=== PATIENT | male | born 1945 | race Caucasian/White ===

== ENCOUNTER 2020-04-04 02:12 | Outpatient (CLI) | payer MEDICARE, OTHER, SELFPAY ==
[2020-04-04 21:22] LABS: SARS-CoV-2 RNA PCR Negative
== END 2020-04-04 02:13 | disposition home or self-care (01) ==
LOC: ANHCOVIDDT 02:13
PROVIDERS: Visit Provider Plastic Surgery
DX: Z01.818 Encounter for other preprocedural examination (principal); Z20.828 Contact with and (suspected) exposure to other viral communicable diseases
CPT/HCPCS: 87635; 93005; C9803; U0003

== ENCOUNTER 2020-04-04 09:28 | Outpatient (CLI) | payer MEDICARE, OTHER, SELFPAY ==
--- NOTE | 2020-04-04 09:35 | ECG_ITS ---
Measurements Intervals [place] Rate: 86 P: 68 IN: 148 QRS: 53 QRSD: 86 T: 37 QT: 324 QTc: 388 Interpretive Statements SINUS RHYTHM BASELINE ARTIFACT- I, II, III, AVR, AVL, AVF NORMAL ECG Electronically Signed On 04-04-2020 11:24:07 OPTICAL MECHANIC APPRENTICE by Zay Valencia D.O.
== END 2020-04-04 09:29 | disposition home or self-care (01) ==
LOC: ANHSURGERY 09:35
PROVIDERS: PCP Emergency Medicine; Visit Provider Plastic Surgery
DX: Z01.818 Encounter for other preprocedural examination (principal); I10 Essential (primary) hypertension
CPT/HCPCS: 93005

== ENCOUNTER 2020-04-07 01:23 | Day surgery (SDC) | payer MEDICARE, OTHER, SELFPAY ==
[2020-03-29 14:06] VITALS: BMI 19.5
--- NOTE | 2020-04-06 13:55 | P.PNAN_ITS ---
Anes - Initial Pre Proc Eval Procedure: Operation Date: 04/07/20 08:30 Proposed Procedures p Wide Excision of Melanoma Left Medial Extensor Forearm, With [place] Lymph Node Biopsy - Ramy Hearn MD Date/Time: 04/06/20 13:55 Surgeon: Ramy Hearn MD Pre Op Diagnosis: Melanoma Left Medial Extensor Forearm Patient Data Age: 74 Gender: M Height: 1.7 m Weight: 56.8 kg Allergies Allergy/AdvReac Type Severity Reaction Status Date / Time Penicillins Allergy Unknown SWELLING/HI Verified 04/07/20 06:34 VES Home Medications Medication Instructions Recorded Confirmed Type amlodipine 10 mg PO DAILY 03/29/20 04/07/20 History Patient hx anesthesia problems: none Family hx anesthesia problems: none [facility] Past Medical History Medical History (Updated 04/06/20 @ 13:56 by Mulugeta Landry DO) Glaucoma History of melanoma History of prostate cancer Hypertension Surgical History Surgical History (Updated 04/06/20 @ 13:56 by Mulugeta Landry DO) History of appendectomy History of prostatectomy Anes - Eval Final PreProcedure Day of Procedure 04/06/20 13:55 Patient weight: normal Heart: regular rate and rhythm Lungs: clear to auscultation and normal air movement Airway: Mallampati scale class II Neurological: alert and oriented Last oral intake: >/= 8 hours ASA classification: III Emergent: no Anesthetic plan: proceed Anesthesia type and monitoring: general LMA and standard monitoring Informed Consent: The patient's anesthetic plan and its attendant risks and benefits were discussed with the patient/family/POA. Questions were solicited and answers provided to the satisfaction of the patient/family/POA.
[2020-04-07] VITALS (9 sets, daily range): BP systolic 141–163; BP diastolic 62–76; PULSE 84–103; RESP 12–16; TEMP 36.4–36.7; O2SAT 99–100
--- NOTE | ~2020-04-07 | NM_ITS ---
EXAMINATION: NM sentinel node w imaging DATE: 04/07/2020 09:13 INDICATION: Left forearm melanoma. TECHNIQUE: 0.4869 mCi Tc-99m filtered sulfur colloid was injected in two aliquots near the left forea rm skin lesion. Scintigrams of the chest and upper arms were obtained. FINDINGS: No sentinel node is visualized. IMPRESSION: 1. No sentinel node visualized. Reviewed, dictated and finalized at location A. NUE FIELD AUDITOR
--- NOTE | 2020-04-07 07:25 | WPDHPUPDATE1 ---
History and Physical Update Update Date/Time: 04/07/20 07:25 History and Physical has been reviewed, including an updated exam of the patient. There are NO changes in the patient's condition. Risks, benefits, and alternatives have been discussed and questions answered. Patient agrees to proceed with procedure.
[2020-04-07] MEDS: LACTATED RINGERS 1,000 ML 30 ML IV CONT (07:30)
[2020-04-07] MEDS: LIDO 1%/EPINEPHRINE 1:100,000 20 ML VIAL INFILTRATE (09:58)
--- NOTE | 2020-04-07 10:35 | PM.OP ---
Procedure Note - Brief Procedure Note - Brief Date of procedure: 04/07/20 Pre-op diagnosis: Melanoma Left Medial Extensor Forearm Post-op diagnosis: same Procedure performed: 3.5 cm wide excision of melanoma [place] thickness 0.9 mm with intermediate repair 12.0 cm . Unsuccessful sentinel lymph node survey. Anesthesia: GETA Surgeon: Ramy Hearn MD Estimated blood loss (mL): 5 Tourniquet time (min): 0 Drains: No Packing: No Pathology: yes (Wide excision only.) Complications: No immediate complications Condition: stable Disposition: PACU Findings: Unable to locate any dominant nucleotide pooling in the axilla, base of neck or clavicle. No reading above 17 clicks even with a small axillary incision. Max reading at the tumor site ~7000.
--- NOTE | 2020-04-07 10:35 | SUR.OPER ---
EBL=5ML
--- NOTE | 2020-04-07 15:50 | P.OP_ITS ---
Procedure Note - Detailed Date of procedure: 04/07/20 Pre-op diagnosis: Melanoma Left Medial Extensor Forearm Post-op diagnosis: same Procedure performed: 0.5 cm excision of malignant melanoma of the left extensor forearm with intermediate repair 12 cm. Unsuccessful attempt to identify a sentinel lymph node by radionuclide scanning. Description of procedure: The patient was taken to the nuclear Medicine Department in the morning for radionuclide injection and sent a note identification. The injection was done, but a pooling of radionuclide did not identify a sentinel lymph node. the tumor site was marked in holding area. Patient was taken to the operating room and placed supine on the operating table and administered general endotracheal anesthesia. the patient was prepped and draped in usual fashion. The gamma probe was brought into the field and a search was made for the sentinel node. The count at the tumor site reached 7000. No point along the arm the axilla,the left lower neck or clavicular region even reached 20 counts. We undertook this search again that 10 :15 and 10: 30. we then undertook a 1.5 in incision in the axilla in an area that had registered 12 counts. We probed in the subcutaneous fat and could find no hot spot. We turned to the left arm. The biopsy site was identified and marked. a 1 inch radial margin was marked around the biopsy site. this was infiltrated with 1% lidocaine with epinephrine. The full-thickness skin ellipse including underlying fat down to fascia was incised. A careful search for cutaneous nerves was done as the specimen was taken off the fascia. This specimen was sent for permanent section. The wound margins were undermined 3 cm in all directions and the wound was closed easily with intradermal 3-0 Vicryl suture, multiple sites, Standing cones were removed and the skin was closed with a running 5 0 nylon. small dressings were applied to both areas. The patient was discharged with instructions in wound care and follow-up. No prescriptions were written. A phone call was placed to the relative whose phone number I had been given and the findings of the procedure were explained. Anesthesia: IRASEMA Surgeon: Ramy Hearn MD Neighborhood Conservation Officer: Ariel Estimated blood loss (mL): 10 Tourniquet time (min): 0 Drains: No Packing: No Pathology: yes Complications: No immediate complications Condition: stable Disposition: PACU
== END 2020-04-07 12:34 | disposition home or self-care (01) ==
PROVIDERS: PCP Emergency Medicine; Visit Provider Plastic Surgery
PROC: (CPT 11604; principal; 2020-04-07 08:30)
DX: C43.62 Malignant melanoma of left upper limb, including shoulder (principal); I10 Essential (primary) hypertension; H40.9 Unspecified glaucoma; Z85.46 Personal history of malignant neoplasm of prostate
CPT/HCPCS: 11604; 12034; 78195; 88305; 88342; A9270; A9520; J1100; J2405; J2704; J3010; J7120

== ENCOUNTER 2020-10-06 07:32 | Outpatient (CLI) | payer MEDICARE, OTHER, SELFPAY ==
--- NOTE | ~2020-10-06 | PE_ITS ---
EXAMINATION: PET whole body melanoma DATE: 10/06/2020 09:55 INDICATION: Initial staging of left forearm melanoma. TECHNIQUE: Blood glucose level was 90 mg/dL. 9.958 mCi of 18-fluorodeoxyglucose (18-FDG) was administ ered i.v. Low dose computed tomography (CT) images were acquired from the skull vertex to the feet fo r attenuation correction and anatomic localization. Automated exposure control was employed. Dose-mecca gth product (DLP) was 238 mGy-cm. Positron emission tomography (PET) images were acquired in the same distribution. COMPARISON: None FINDINGS: Head/neck: There is increased activity in the major salivary glands and oropharynx without CT correla te, likely physiologic. There are no pathologically enlarged lymph nodes. Chest: A calcified left lung nodule and calcified left hilar lymph node are consistent with old granu lomatous disease. There is a small right posterior diaphragmatic hernia containing fat. No pleural ef fusion. The heart size is normal. There are coronary artery calcifications. No pericardial effusion. Abdomen/pelvis/lower limbs: The liver, gallbladder, spleen, pancreas, adrenal glands, and kidneys are normal. There is a right inguinal hernia containing fat. There are no dilated loops of bowel. There are no pathologically enlarged lymph nodes. There is no free intraperitoneal fluid. There is no osseo us malignancy. IMPRESSION: 1. No evidence of metastatic disease. Reviewed, dictated and finalized at location A.
[2020-10-06 07:57] LABS: Glucose Point of Care 90 mg/dl (65-105)
== END 2020-10-06 07:33 | disposition home or self-care (01) ==
PROVIDERS: PCP Emergency Medicine; Visit Provider Internal Medicine Medical Oncology
DX: C43.62 Malignant melanoma of left upper limb, including shoulder (principal)
CPT/HCPCS: 78816; 82948; A9552

== ENCOUNTER 2022-02-15 01:34 | Day surgery (SDC) | payer MEDICARE, OTHER, SELFPAY ==
[2022-02-12 10:23] VITALS: BMI 24.3
--- NOTE | 2022-02-12 10:30 | PC.NURSE ---
Report to the Outpatient Waiting Room, entrance under the green pavilion located off [facility], at time 0600 on date 02/15/22. OR Time: 0730. Time changes happen often and if your time is changed the preop area will call you the afternoon before. - You and your visitor will be asked to self-screen and do not enter if you have any COVID symptoms. - Only one visitor and NO children visitors are allowed at this time. - The patient visitor is requested to leave or wait in car when not with patient due to restrictions. - A mask is required within the hospital. Patients may have clear liquids (water, carbonated beverages, clear teas, apple juice) until 3 hours prior to surgery with a maximum of 20 ounces. - No food from midnight until time of surgery Take the following medications with a SIP of water the morning of surgery: AMLODIPINE Medications to discontinue per physician: N/A Date to take last dose: N/A Please no make-up, nail [place], hairspray, perfume, deodorant, or body powder the day of surgery. No jewelry (including any body piercings) or valuables the day of surgery, leave them at home. Please take a shower or bath the night before, or the morning of, surgery with an antibacterial soap. Wear comfortable, loose fitting clothing. - Jewelry must be removed prior to entering the operating room. Rings and piercings that are not removed may be cut off. - The hospital will not accept responsibility for valuables. - Please leave all valuables, including medications, at home the day of surgery. If you are going home after surgery, a licensed entry level truck driver must drive you home. - NO public transportation without another adult. - We recommend that an adult stay with you for 24 hours following discharge. - We also recommend that you do not drive, make important decision, drink alcoholic beverages, or take any drugs that were not prescribed by your health care provider for at least 24 hours after your discharge time. Follow any additional instructions given to you from your surgeon. If you or anyone in your household have experienced Covid symptoms in the past week, please notify your surgeon or the nurse liaison at the phone number below for possible testing. Telephone instructions given to PT - SEYMOUR MENDOZA and asked if any additional questions and then verbalized understanding. Patient advised to call surgeon office or pre surgery nurse liaison [phone] if any additional questions.
--- NOTE | 2022-02-14 12:08 | P.PNAN_ITS ---
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 [facility] Past Medical History Medical History (Updated 04/06/20 @ 13:56 by Mulugeta Landry DO) Glaucoma History of melanoma History of prostate cancer Hypertension Surgical History Surgical History (Updated 04/06/20 @ 13:56 by Mulugeta Landry DO) History of appendectomy History of prostatectomy Social History Social History Smoking status: Never smoker Alcohol intake: current Drinks per week: 2 Substance use: never Substance use type: does not use Living arrangements: alone Spiritual care concerns: No Anes - Eval Final PreProcedure Day of Procedure 02/14/22 12:08 Patient weight: normal Heart: regular rate and rhythm Lungs: clear to auscultation Airway: Mallampati scale class II Neurological: alert and oriented Last oral intake: >/= 8 hours ASA classification: III Emergent: no Anesthetic plan: proceed Anesthesia type and monitoring: general GIVS and standard monitoring Results Review: All pre-operative results and documents have been reviewed as part of the pre- operative evaluation. Informed Consent: The patient's anesthetic plan and its attendant risks and benefits were discussed with the patient/family/POA. Questions were solicited and answers pro vided to the satisfaction of the patient/family/POA.
[2022-02-15] MEDS: LACTATED RINGERS 1,000 ML 30 ML IV CONT (07:10)
--- NOTE | 2022-02-15 07:12 | WPDHPUPDATE1 ---
History and Physical Update Update Date/Time: 02/15/22 07:12 History and Physical has been reviewed, including an updated exam of the patient. There are NO changes in the patient's condition. Risks, benefits, and alternatives have been discussed and questions answered. Patient agrees to proceed with procedure.
[2022-02-15 07:14] VITALS: BP 157/62; PULSE 75; RESP 16; TEMP 36.8; O2SAT 100
--- NOTE | 2022-02-15 08:02 | SUR.OPER ---
Frozen Section Specimen sent to Pathology per HUNG Reed at 0802.
--- NOTE | 2022-02-15 08:28 | SUR.OPER ---
Pathologist spoke with Dr. Hearn in regards to frozen section bx. Margins are good.
[2022-02-15 08:39] VITALS: BP 144/75; PULSE 93; RESP 16; TEMP 36.4; O2SAT 100
[2022-02-15 09:05] VITALS: BP 146/72; PULSE 85; RESP 16; O2SAT 98
[2022-02-15 09:35] VITALS: BP 152/77; PULSE 81; RESP 16
--- NOTE | 2022-02-15 12:23 | W.PM.PROC2 ---
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 1.5 cm excision of basal cell carcinoma of the left zygoma with permanent section and intermediate repair 3 cm Surgeon Ramy Hearn MD Dental Surgery Doctor Nata Anesthesia MAC Indications Biopsy-proven basal cell carcinoma behind the right ear. Biopsy-proven basal cell carcinoma of the left zygoma Description of Procedure The 2 skin sites were marked on the patient in the holding area. This was the right posterior ear and left zygoma where there are healed surgical biopsy sites. The patient was taken to the operating room where he was placed supine on the operating table. He was administered sedation anesthesia. Face and neck were prepped and draped in usual fashion. The 2 sites were examined and markings made for excision. The 2 sites were infiltrated with 1% lidocaine with epinephrine. The lesion from the right ear was taken 1st as a full-thickness skin ellipse the most superior aspect was tagged with a suture for orientation. It was sent for frozen section. The pathologist reports no residual basal cell carcinoma at this biopsy site. While the specimen was out the 2nd excision was carried out on the left zygoma. Behind the right ear the wound margins were undermined about a cm in all directions and the wound closed with intradermal 4-0 Vicryl and a running 5 0 nylon tolerated well. The left zygoma site was closed with intradermal 4-0 Vicryl and running 5 0 nylon as well Estimated Blood Loss -2.0 Drains No Packing No Complications No immediate complications Condition Stable Disposition Same day
== END 2022-02-15 09:51 | disposition home or self-care (01) ==
PROVIDERS: PCP Family Medicine; Visit Provider Plastic Surgery
PROC: (CPT 11642; principal; 2022-02-15 07:30)
DX: C44.212 Basal cell carcinoma of skin of right ear and external auricular canal (principal); C44.319 Basal cell carcinoma of skin of other parts of face
CPT/HCPCS: 11642 ×2; 12053; 88304; 88305; 88331; A9270; J1100; J2405; J2704; J3010; J7120